=== PATIENT | male | born 1950 | race Native Hawaiian/Other Pacific Islander ===

== ENCOUNTER 2018-01-01 08:40 | Outpatient (CLI) | payer BC ==
[2018-01-01 09:04] LABS: PLATELET COUNT 250 K/uL (142-355)
[2018-01-01 09:26] LABS: POTASSIUM 4.1 mmol/L (3.6-5.2)
== END 2018-01-01 21:42 | disposition home or self-care (01) ==
LOC: LABW 08:40
PROVIDERS: Nurse Practitioner Family
DX: I10 Essential (primary) hypertension (principal); E78.2 Mixed hyperlipidemia; E66.8 Other obesity; Z79.899 Other long term (current) drug therapy; Z51.81 Encounter for therapeutic drug level monitoring
CPT/HCPCS: 36415; 80053; 80061; 82306; 82607; 83036; 84154; 84436; 84443; 84479; 85027

== ENCOUNTER 2018-02-15 12:17 | Outpatient (CLI) | payer BC | END 2018-02-15 23:48 | disposition home or self-care (01) | LOC: RESP 12:17 | DX: I10 Essential (primary) hypertension (principal) | CPT/HCPCS: 93306 ==

== ENCOUNTER 2018-03-28 13:09 | Outpatient (CLI) | payer BC | END 2018-03-28 20:52 | disposition home or self-care (01) | LOC: RAD 13:09 | DX: M25.561 Pain in right knee (principal) ==

== ENCOUNTER 2019-08-04 13:35 | Outpatient (CLI) | payer BC | END 2019-08-04 19:32 | disposition home or self-care (01) | LOC: RAD 13:35 | DX: J20.9 Acute bronchitis, unspecified (principal) ==

== ENCOUNTER 2020-05-20 08:30 | Outpatient (CLI) | payer BC | END 2020-05-20 22:23 | disposition home or self-care (01) | LOC: RAD 08:30 | DX: M25.562 Pain in left knee (principal) ==

== ENCOUNTER 2021-06-16 12:01 | Outpatient (CLI) | payer BC | END 2021-06-16 21:51 | disposition home or self-care (01) | LOC: RAD 12:01 | PROVIDERS: ATTEND Physician Assistant | DX: M25.562 Pain in left knee (principal) ==

== ENCOUNTER 2022-02-06 11:15 | Outpatient (CLI) | payer BC ==
[2022-02-06 12:05] LABS: POTASSIUM 3.5 mmol/L (3.6-5.2)
== END 2022-02-06 20:00 | disposition home or self-care (01) ==
LOC: LABW 11:15 → RAD 11:15
PROVIDERS: ATTEND Nurse Practitioner Primary Care
DX: Z01.818 Encounter for other preprocedural examination (principal)
CPT/HCPCS: 36415; 80053; 93005

== ENCOUNTER 2022-02-20 07:54 | Outpatient (CLI) | payer BC ==
[~2022-02-20] VITALS: Ht 182.9 cm; Wt 127.0 kg
== END 2022-02-20 19:01 | disposition home or self-care (01) ==
LOC: NM 07:54
PROVIDERS: ATTEND Nurse Practitioner Primary Care
DX: R94.31 Abnormal electrocardiogram [ECG] [EKG] (principal)
CPT/HCPCS: A9500; J2785

== ENCOUNTER 2022-05-18 12:54 | Outpatient (CLI) | payer BC | END 2022-05-18 20:55 | disposition home or self-care (01) | LOC: RAD 12:54 | PROVIDERS: ATTEND Physician Assistant | DX: M25.562 Pain in left knee (principal) ==

== ENCOUNTER 2022-12-03 08:52 | Outpatient (CLI) | payer BC | END 2022-12-03 19:04 | disposition home or self-care (01) | LOC: CT 08:52 | PROVIDERS: ATTEND Nurse Practitioner Primary Care | DX: R05.3 Chronic cough (principal) ==

== ENCOUNTER 2023-04-16 10:39 | Outpatient (CLI) | payer BC, OTHER ==
[2023-04-16 11:13] LABS: PLATELET COUNT 243 K/uL (142-355)
[2023-04-16 15:45] LABS: POTASSIUM 3.5 mmol/L (3.6-5.2)
== END 2023-04-16 19:17 | disposition home or self-care (01) ==
LOC: LABW 10:39
PROVIDERS: ATTEND Internal Medicine
DX: I12.9 Hypertensive chronic kidney disease with stage 1 through stage 4 chronic kidney disease, or unspecified chronic kidney disease (principal); N18.2 Chronic kidney disease, stage 2 (mild); M32.14 Glomerular disease in systemic lupus erythematosus; E78.49 Other hyperlipidemia
CPT/HCPCS: 36415; 80069; 81000; 82570; 83735; 84156; 84550; 85027; 85652; 86140; 86225